=== PATIENT | male | born 1965 | race Caucasian/White ===

== ENCOUNTER 2024-05-08 10:20 | Day surgery (SDC) | payer OTHER ==
[2024-05-05 13:52] LABS: BASOPHILS # (AUTO) 0.1 X10'3 (0-0.2); BASOPHILS % (AUTO) 0.5 % (0-1); EOSINOPHILS # (AUTO) 0.1 X10'3 (0-0.9); EOSINOPHILS % (AUTO) 1.4 % (0-6); LYMPHOCYTES # (AUTO) 3.3 X10'3 (1.1-4.8); LYMPHOCYTES % (AUTO) 32.1 % (21-51); MEAN CORPUSCULAR HEMOGLOBIN 29.3 PG (27.0-31.0); MEAN CORPUSCULAR HGB CONC 34.3 g/dL (33.0-36.5); MEAN CORPUSCULAR VOLUME 85.3 FL (78-98); MEAN PLATELET VOLUME 7.9 FL (7.4-10.4); MONOCYTES # (AUTO) 0.6 X10'3 (0-0.9); MONOCYTES % (AUTO) 6.1 % (2-12); NEUTROPHILS # (AUTO) 6.2 X10'3 (1.8-7.7); NEUTROPHILS % (AUTO) 59.9 % (42-75); PRE OP HEMATOCRIT 45.7 % (42.0-52.0); PRE OP HEMOGLOBIN 15.7 g/dL (14.0-17.9); PRE OP PLATELET COUNT 296 X10'3 (140-440); PRE OP WHITE BLOOD COUNT 10.4 10'3 (4.8-10.8); RED BLOOD COUNT 5.35 X10'6 (4.70-6.10); RED CELL DISTRIBUTION WIDTH 13.9 % (11.5-14.5)
[2024-05-05 14:15] LABS: ALBUMIN 3.7 G/DL (3.4-5.0); ALKALINE PHOSPHATASE 76 IU/L (46-116); BLOOD UREA NITROGEN 15 MG/DL (7-18); BUN/CREATININE RATIO 14.4 (10.0-20.0); CALCIUM 8.9 MG/DL (8.5-10.1); CHLORIDE 108 MMOL/L (99-107); CREATININE 1.04 MG/DL (0.60-1.10); PRE OP ALT 39 U/L (30-65); PRE OP ANION GAP 6 (8-16); PRE OP AST 23 U/L (10-37); PRE OP BILIRUB, TOTAL 0.5 MG/DL (0.0-1.0); PRE OP GLUCOSE 107 MG/DL (70-104); PRE OP POTASSIUM 3.7 MMOL/L (3.4-5.1); PRE OP SODIUM 139 MMOL/L (135-145); TOTAL CARBON DIOXIDE 24.8 MMOL/L (24-32); TOTAL PROTEIN 7.4 G/DL (6.4-8.2); eGFR 73 ML/MIN
[~2024-05-08] VITALS: Ht 170.2 cm; Wt 104.8 kg
[2024-05-08] VITALS (17 sets, daily range): BP systolic 108–145; BP diastolic 55–74; PULSE 53–76; RESP 15–20; TEMP 98; O2SAT 86–96
[2024-05-08] MEDS: ceFAZolin 2gm in dextrose, iso 50 ML IV ONE (05:30)
[~2024-05-08 10:20] MED LIST: AMLO1CAP6 PO; ASPI-1397 PO; EZET10TA48 PO; ROSU40TA PO
[2024-05-08] MEDS: famotidine 20mg tablet PO ONE (10:48)
[2024-05-08] MEDS: ringers solution, lacted 1,000 ML IV SCH (10:49)
[2024-05-08] MEDS ORDERED: BUPIVACAINE liposomal/PF 13.3 MG/ML vial IM ONE (12:27)
[2024-05-08] MEDS ORDERED: BUPIVAcaine 2.5mg/ml inj 50ml vial (contains preservative) ONE (12:28)
[2024-05-08] MEDS ORDERED: midazolam 1 mg/ML 2ml injection ONE (12:32)
[2024-05-08] MEDS ORDERED: LIDOcaine 2% (20mg/ml) 5ml vial ONE (12:32)
[2024-05-08] MEDS ORDERED: propofol inj 20 ML IV ONE (12:32)
[2024-05-08] MEDS ORDERED: fentaNYL/PF 50MCG/1 ML 2ML syringe ONE (12:32)
[2024-05-08] MEDS ORDERED: acetaminophen 1,000mg/100ml IV 100 ML IV ONE (12:33)
[2024-05-08] MEDS ORDERED: rocuronium 10mg/ml inj IV ONE ×2 (12:33→13:46)
[2024-05-08] MEDS ORDERED: ondansetron/PF 4mg/2ml inj ONE (12:33)
[2024-05-08] MEDS ORDERED: dexamethasone sod phosphate 4mg/ml inj. ONE (12:33)
[2024-05-08] MEDS ORDERED: sevoflurane 250ml liquid IH ONE (12:35)
[2024-05-08] MEDS ORDERED: fentaNYL/PF 50MCG/1 ML 2ML syringe IV PRN (12:40)
[2024-05-08] MEDS ORDERED: ringers solution, lacted 1,000 ML IV SCH (12:40)
[2024-05-08] MEDS ORDERED: hydrALAZINE 20mg/ml inj. IV PRN (12:40)
[2024-05-08] MEDS ORDERED: labetalol 20mg/4ml (5mg/ml) syringe IV PRN (12:40)
[2024-05-08] MEDS ORDERED: ondansetron/PF 4mg/2ml inj IV PRN (12:40)
[2024-05-08] MEDS: BUPIVAcaine 2.5mg/ml inj 50ml vial (contains preservative) IJ ONE (13:30)
[2024-05-08] MEDS: BUPIVACAINE liposomal/PF 13.3 MG/ML vial IM ONE (14:00)
[2024-05-08] MEDS ORDERED: sugammadex 200mg/2ml injection IV ONE (14:14)
[2024-05-08] MEDS: morphine 4 MG/ML inj SYRINge IV PRN (15:25)
[2024-05-08] MEDS: morphine 2 MG/ML inj. syringe IV PRN (15:48)
[2024-05-08] MEDS: fentaNYL/PF 50MCG/1 ML 2ML syringe IV PRN (16:02)
[2024-05-08] MEDS: oxyCODONE/APAP 5-325mg tablet PO PRN (16:43)
== END 2024-05-08 17:05 | disposition home or self-care (01) ==
LOC: PRE-OP 10:20
PROVIDERS: ATTEND Surgery
DX: K43.0 Incisional hernia with obstruction, without gangrene (principal); K43.6 Other and unspecified ventral hernia with obstruction, without gangrene; Z95.5 Presence of coronary angioplasty implant and graft; Z79.82 Long term (current) use of aspirin; Z79.899 Other long term (current) drug therapy; I10 Essential (primary) hypertension; I25.10 Atherosclerotic heart disease of native coronary artery without angina pectoris; I25.2 Old myocardial infarction; J44.9 Chronic obstructive pulmonary disease, unspecified; E66.9 Obesity, unspecified; Z89.429 Acquired absence of other toe(s), unspecified side
CPT/HCPCS: 36415; 49594; 64488; 80053; 82948; 85025; C1781; J0131; J0666; J0690; J1100; J2003; J2250; J2270; J2405; J2704; J3010; J3490; J7030; J7120; Z7506; Z7508; Z7512; A4215; A4618